=== PATIENT | female | born 1935 | race Caucasian/White ===

== ENCOUNTER 2019-05-22 10:44 | Observation (INO) | payer MEDICARE, BC ==
[~2019-05-22] VITALS: Ht 167.6 cm; Wt 89.5 kg
[2019-05-22] VITALS (8 sets, daily range): BP systolic 98–154; BP diastolic 49–69
[2019-05-22] MEDS ORDERED: LOSA50TA88 PO (14:00)
[2019-05-22] MEDS ORDERED: MOVA1TAB2 PO (14:00)
[2019-05-22] MEDS ORDERED: ATOR1TAB19 PO (14:00)
[2019-05-22] MEDS ORDERED: AMLO5TAB6 PO (14:00)
[2019-05-22] MEDS ORDERED: CARV12.5 PO (14:00)
[2019-05-22] MEDS ORDERED: ELIQ5TAB PO (14:00)
[2019-05-22] MEDS ORDERED: POTA10TA67 PO (14:00)
[2019-05-22] MEDS ORDERED: OXYC1TAB23 PO (14:00)
[2019-05-22] MEDS ORDERED: SYNT25TA PO (14:00)
[2019-05-22] MEDS ORDERED: ALLO100T PO (14:00)
[2019-05-22] MEDS ORDERED: FURO40TA2 PO (14:00)
[2019-05-22] MEDS ORDERED: IRON65TA2 PO (14:01)
[2019-05-22] MEDS ORDERED: PERCOCET 5MG/325MG TAB PO PRN ×2 (14:30→18:00)
--- NOTE | 2019-05-22 14:32 | HPEPDOC ---
General Date of Admission May 22, 2019 at 13:15 Date of Service: May 22, 2019 Chief Complaint The patient is a 83-year-old female admitted with a reason for visit of Pacemaker Battery Change. Source: Patient Exam Limitations: No limitations Timing/Duration: Other Severity: Other (not applicable) Associated Symptoms: Other ( a couple applicable) History of Present Illness 82 years old white female with past medical history of pacemaker secondary to complete heart block, chronic atrial fibrillation, hypertensive heart disease, heart failure, which is diastolic and chronic in nature was sent from Dr. Loera's office for change of pacemaker batteries. Patient offers no new complaints at the present time including chest pain, shortness of breath, nausea, vomiting, etc. Home Medications Scheduled Allopurinol (Allopurinol) 100 Mg Tablet, 100 MG PO QHS, (Reported) Amlodipine Besylate (Amlodipine Besylate) 5 Mg Tablet, 5 MG PO QHS, (Reported) Apixaban (Eliquis) 5 Mg Tablet, 5 MG PO BID, (Reported) Atorvastatin Calcium (Atorvastatin Calcium) 10 Mg Tablet, 10 MG PO QHS, (Reported) Carvedilol (Carvedilol) 12.5 Mg Tablet, 12.5 MG PO BID, (Reported) Ferrous Sulfate (Iron) 325 Mg Tablet, 325 MG PO DAILY, (Reported) TAKES AT NOON Furosemide (Furosemide) 40 Mg Tablet, 40 MG PO BID, (Reported) TAKES AT 0800/1600 Levothyroxine Sodium (Synthroid) 25 Mcg Tablet, 25 MCG PO QAM, (Reported) Losartan Potassium (Losartan Potassium) 50 Mg Tablet, 50 MG PO DAILY, (Reported) Naloxegol Oxalate (Movantik) 25 Mg Tablet, 25 MG PO DAILY, (Reported) Potassium Chloride (Potassium Chloride) 10 Meq Tab.er.prt, 10 MEQ PO DAILY, (Reported) Scheduled PRN Oxycodone HCl/Acetaminophen (Oxycodone-Acetaminophen 5-325) 1 Each Tablet, 1-2 TABS PO Q4H PRN for PAIN, (Reported) Allergies Coded Allergies: No Known Allergies (Verified , 11/23/03) Past Medical History Medical History PPM secondary to complete heart block, chronic atrial fibrillation, hypertensive heart disease and a chronic diastolic heart failure Surgical History 2 C-sections and 1, hernia repair Family History Significant Family History: No pertinent family hx Social History * Smoker: Denies Alcohol: Denies Drugs: denies A-FIB/CHADSVASC A-FIB History Current/History of A-Fib/PAF?: Yes Current PO Anticoag Therapy: Yes Review of Systems Constitutional: Denies: Chills, Fever, Malaise, Night Sweats, Weakness, Fatigue, Weight Loss, Lethargy, Other Eyes: Denies: Pain, Vision change, Conjunctivae inflammation, Eyelid inflammation, Redness, Other ENT: Denies: Head Aches, Ear Pain, Dysphagia, Sinus Congestion, Post Nasal Drip, Sore Throat, Epistaxis, Other Symptoms Skin: Denies: Rash, Lesions, Jaundice, Bruising, Itching, Dry, Breakdown, Nail Changes, Other Pulmonary: Denies: Dyspnea, Cough, Pleuritic Chest Pain, Other Symptoms Cardiovascular: Denies: Chest Pain, Palpitations, Orthopnea, Paroxysmal Noc. Dyspnea, Edema, Lt Headedness, Other Symptoms Gastrointestinal: Denies: Nausea, Vomiting, Abdominal Pain, Diarrhea, Constipation, Melena, Hematochezia, Other Symptoms Genitourinary: Denies: Dysuria, Frequency, Incontinence, Hematuria, Retention, Other Symptoms Hematologic: Denies: Bruising, Bleeding Excessively, Petecchia, Purpura, Enlarged Lymph Nodes, Other Hematologic Endocrine: Denies: Polydipsia, Polyphagia, Polyuria, Heat Intolerance, Cold Intolerance, Other Endocrine Sx Musculoskeletal: Denies: Neck Pain, Back Pain, Shoulder Pain, Arm Pain, Hand Pain, Leg Pain, Foot Pain, Joint Pain, Muscle Pain, Spasms, Other Symptoms Neurological: Denies: Weakness, Numbness, Incoordination, Change in speech, Confusion, Seizures, Other Symptoms Psych: Denies: Mood Normal, Anxiety, Depression, Memory Issues, Thoughts of Self Harm, Anger, Thoughts of Harming Other, Other Psych Physical Examination General Exam: Positive: Alert Eye Exam: Positive: PERRLA, Conjunctiva & lids normal ENT Exam: Positive: Atraumatic, Mucous membr. moist/pink Neck Exam: Positive: Supple Chest Exam: Positive: Clear to auscultation, Normal air movement Heart Exam: Positive: Rate Normal, Normal S1, Normal S2 Abdomen Exam: Positive: Normal bowel sounds Extremity Exam: Positive: Normal pulses Skin Exam: Positive: Nl turgor and temperature Neuro Exam: Positive: Normal Gait, Strength at 5/5 X4 ext, Cranial Nerves 3-12 NL Psych Exam: Positive: Mood NL, Oriented x 3 Vital Signs As per ICU nursing sheet Problems (1) Pacemaker at end of battery life Status: Acute Problem Text: 80 years old white female with past medical history of pacemaker placement secondary to complete heart block, chronic atrial fibrillation, chronic diastolic heart failure, hypertensive heart disease was sent in from Dr. Shrestha's office for replacement of battery is off her pacemaker. Patient is completely asymptomatic on presentation Admit patient to PCU under telemetry monitoring EKG CBC, CMP, INR hold eliquis Hold all antihypertensive meds secondary to low blood pressure Discussed with Dr. Shrestha on the phone Dr. Camarillo will be changing the bed raised of a pacemaker Will restart her home meds after the procedure Continue pain management (2) Chronic atrial fibrillation Status: Chronic Problem Text: EKG Telemetry monitoring Restart all home meds of the procedure (3) Complete heart block Status: Chronic Problem Text: Status post pacemaker placement (4) Chronic diastolic (congestive) heart failure Status: Chronic Problem Text: Stable on on diuretics Restart all home meds after the procedure Plan / VTE VTE Prophylaxis Ordered?: Yes SUSU ARORA MD May 22, 2019 14:32
[2019-05-22 15:11] LABS: HEMATOCRIT 37.1 % (36.0-47.0); HEMOGLOBIN 11.6 g/dl (12.0-15.5); MEAN CORPUSCULAR HEMOGLOBIN 32.6 pg (27.0-33.0); MEAN CORPUSCULAR HGB CONC 31.3 g/dl (32.0-36.5); MEAN CORPUSCULAR VOLUME 104.2 fl (80.0-96.0); PLATELET COUNT, AUTOMATED 187 10^3/uL (150-450); RED BLOOD COUNT 3.56 10^6/uL (4.00-5.40); WHITE BLOOD COUNT 5.9 10^3/uL (4.0-10.0)
[2019-05-22] MEDS ORDERED: ceFAZolin SOD 2 GM in IV 1 EA IV ONE (15:15)
[2019-05-22 15:17] LABS: INR 1.32; PROTHROMBIN TIME 16.1 SECONDS (11.8-14.0)
[2019-05-22] MEDS ORDERED: LIDOCAINE 1% SDV INJ 30 ML VIAL As Ordered ONE (15:22)
[2019-05-22 15:32] LABS: ALBUMIN 3.7 GM/DL (3.2-5.2); ALT/SGPT 10 U/L (12-78); BILIRUBIN,TOTAL 0.8 MG/DL (0.2-1.0); BLOOD UREA NITROGEN 20 MG/DL (7-18); CALCIUM LEVEL 9.7 MG/DL (8.8-10.2); CARBON DIOXIDE LEVEL 27 MEQ/L (21-32); CHLORIDE LEVEL 106 MEQ/L (98-107); CREATININE FOR GFR 0.62 MG/DL (0.55-1.30); GLOMERULAR FILTRATION RATE > 60.0 (>32); GLUCOSE, FASTING 93 MG/DL (70-100); MAGNESIUM LEVEL 2.5 MG/DL (1.8-2.4); POTASSIUM SERUM 4.3 MEQ/L (3.5-5.1); SODIUM LEVEL 140 MEQ/L (136-145); TOTAL PROTEIN 6.9 GM/DL (6.4-8.2)
[2019-05-22] MEDS ORDERED: propofoL 200 MG/20 ML VIAL As Ordered ONE ×2 (15:49→17:17)
[2019-05-22] MEDS ORDERED: fentaNYL 100 MCG/2 ML INJECTION (J3010) As Ordered ONE (15:49)
[2019-05-22] MEDS ORDERED: LIDOCAINE 2% INJ 100 MG/5 ML SDV (FOR ANES.) As Ordered ONE (15:49)
[2019-05-22] MEDS ORDERED: MIDAZOLAM INJ 2 MG/2 ML VIAL (J2250) As Ordered ONE (15:49)
[2019-05-22] MEDS ORDERED: ceFAZolin 2 GM/D5W 50 ML IV BAG (J0690 PER 500MG) As Ordered ONE (16:41)
[2019-05-22] MEDS ORDERED: NEOSPORIN TOP OINT 15GM As Ordered ONE (16:59)
[2019-05-22] MEDS ORDERED: ONDANSETRON 4MG/2ML VIAL (J2405) As Ordered ONE (17:09)
[2019-05-22] MEDS ORDERED: KETOROLAC 60 MG/2 ML VIAL (J1885) As Ordered ONE (17:10)
[2019-05-22] MEDS ORDERED: KETOROLAC 30 MG/ML VIAL (J1885) IV PRN (17:11)
[2019-05-22] MEDS ORDERED: LR 1,000 ML IV SCH (18:00)
[2019-05-22] MEDS: ASCORBIC ACID 250 MG TAB PO SCH (20:51)
[2019-05-22] MEDS: PERCOCET 5MG/325MG TAB PO PRN (20:52)
[2019-05-22] MEDS ORDERED: allopurinoL 100 MG TAB PO SCH (21:00)
[2019-05-22] MEDS ORDERED: ATORVASTATIN 10 MG TAB PO SCH (21:00)
[2019-05-22] MEDS ORDERED: amLODIPine 5 MG TAB PO SCH (21:00)
--- NOTE | 2019-05-22 21:15 | RO ---
DATE OF PROCEDURE: 05/22/2019 INDICATION: Pacemaker battery depletion. PREPROCEDURE DIAGNOSIS: Pacemaker battery depletion. POSTPROCEDURE DIAGNOSIS: Pacemaker battery depletion. PROCEDURE PERFORMED: Explantation of old Medtronic single-chamber pacemaker and implantation of a new Medtronic single-chamber pacemaker pulse generator, insertion of a TYRX antimicrobial envelope. SURGEON: Nhan Camairllo MD ASSOCIATE JAVA DEVELOPER: None. ANESTHESIA: Lidocaine 1% local and monitored anesthetic care. SPECIMENS: Old Medtronic single-chamber pacemaker pulse generator. COMPLICATIONS: None. ESTIMATED BLOOD LOSS: 20 mL. DESCRIPTION OF PROCEDURE: The patient was prepped and draped over the left pectoral region. 3M Ioban film was applied. Incision was made using a SFOXtronic PEAK PlasmaBlade through the existing pacemaker incision scar. The PEAK PlasmaBlade was used to get down to and through the capsule overlying the pacemaker pulse generator. The pacemaker pulse generator was removed from the pocket after cutting the tie-down suture holding the pacemaker pulse generator. The existing ventricular pacemaker lead was removed from the existing pacemaker pulse generator after loosening the set screw, and it was immediately placed into the header of the new pacemaker pulse generator and secured by tightening the set screw on the new pacemaker pulse generator. Next, I took a TYRX antimicrobial envelope and cut into six pieces, which were placed into the floor of the existing pacemaker pocket. The new pacemaker pulse generator was then placed into the existing pacemaker pocket. The deep layer was closed using individual sutures consisting of #2-0 Vicryl. A few additional #3-0 Vicryl sutures were used to help approximate the more superficial layer. Skin was closed using ada. Bactroban ointment was then placed over the incision line followed by Telfa, followed by a Bioclusive dressing. The patient tolerated the procedure well without any immediate complications. The existing pacemaker pulse generator that was removed was a Medtronic Adapta SR with product number [id number] and serial number [id number], which was implanted 08/30/2014. The new pacemaker pulse generator implanted was a Medtronic model W1SR01 with serial number [id number]. The model name was Licha XT SR MRI. The existing pacemaker lead for the right ventricle was a Medtronic model 5076-58 with serial number [id number], originally implanted 09/29/2002. Device-based testing through the new pacemaker pulse generator for the right ventricle lead showed a lead impedance of 323 ohms with capture threshold of 1.75 volts at 0.8 milliseconds. No R waves (patient completely pacemaker dependent).
[2019-05-23] VITALS: BP 125/86
[2019-05-23 04:00] VITALS: BP 127/60
[2019-05-23] MEDS: PERCOCET 5MG/325MG TAB PO PRN ×3 (04:22→12:22)
[2019-05-23] MEDS ORDERED: LEVOTHYROXINE 25MCG TABLET (0.025MG) PO SCH (06:00)
--- NOTE | 2019-05-23 06:54 | ECGEPIP ---
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
--- NOTE | 2019-05-23 06:58 | ECGEPIP ---
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
[2019-05-23 07:52] VITALS: BP 154/63
[2019-05-23] MEDS: ASCORBIC ACID 250 MG TAB PO SCH (08:38)
[2019-05-23] MEDS ORDERED: APIXABAN 5 MG TAB (ELIQUIS) PO SCH (09:00)
[2019-05-23] MEDS ORDERED: POTASSIUM CHLORIDE 10 MEQ SR TABLET PO SCH (09:00)
[2019-05-23] MEDS ORDERED: LOSARTAN 50 MG TAB PO SCH (09:00)
[2019-05-23] MEDS ORDERED: CARVedilol 12.5 MG TAB PO SCH (09:00)
[2019-05-23] MEDS ORDERED: FUROSEMIDE 40 MG TAB PO SCH (09:00)
[2019-05-23] MEDS ORDERED: FERROUS SULFATE 325MG TAB PO SCH (09:00)
--- NOTE | 2019-05-23 10:09 | IPNPDOC ---
Subjective Date Seen The patient was seen on 05/23/19. Subjective Chief Complaint/HPI Patient comfortable and in no distress. Offers no new complaints. Pacemaker battery were changed yesterday General: Denies: ROS Unobtainable, Chills, Night Sweats, Fatigue, Malaise, Normal Appetite, Other Symptoms Constitutional: Denies: Chills, Fever, Malaise, Night Sweats, Weakness, Fatigue, Weight Loss, Lethargy, Other Pulmonary: Denies: Dyspnea, Cough, Pleuritic Chest Pain, Other Symptoms Cardiovascular: Denies: Chest Pain, Palpitations, Orthopnea, Paroxysmal Noc. Dyspnea, Edema, Lt Headedness, Other Symptoms Gastrointestinal: Denies: Nausea, Vomiting, Abdominal Pain, Diarrhea, Constipation, Melena, Hematochezia, Other Symptoms Musculoskeletal: Denies: Neck Pain, Back Pain, Shoulder Pain, Arm Pain, Hand Pain, Leg Pain, Foot Pain, Joint Pain, Muscle Pain, Spasms, Other Symptoms Neurological: Denies: Weakness, Numbness, Incoordination, Change in speech, Confusion, Seizures, Other Symptoms Objective Physical Examination Chest Exam: Positive: Clear to auscultation, Normal air movement Heart Exam: Positive: Rate Normal, Normal S1, Normal S2 Abdomen Exam: Positive: Normal bowel sounds Extremity Exam: Positive: Normal pulses Skin Exam: Positive: Nl turgor and temperature Neuro Exam: Positive: Normal Gait, Strength at 5/5 X4 ext, Cranial Nerves 3-12 NL Assessment /Plan Problems (1) Pacemaker at end of battery life Status: Acute Problem Text: Pacemaker batteries were changed yesterday by Dr. pérez Pacemaker rhythm noted on telemetry Patient will be discharged home once cleared from cardiology Continue all home meds (2) Complete heart block Status: Chronic Problem Text: Status post pacemaker placement (3) Chronic diastolic (congestive) heart failure Status: Chronic Problem Text: Stable and under control. Continue home meds (4) Chronic atrial fibrillation Status: Chronic Problem Text: Under control. Continue home meds Plan/VTE VTE Prophylaxis Ordered?: Yes VS, I&O, 24H, Fishbone Vital Signs/I&O Vital Signs Date Time Temp Pulse Resp B/P (MAP) Pulse Ox O2 Delivery O2 Flow Rate FiO2 05/23/19 09:08 16 05/23/19 08:00 2.0 05/23/19 07:52 97.2 59 154/63 (93) 98 Nasal Cannula I&O- Last 24 Hours up to 6 AM 05/23/19 06:00 Intake Total 1850 ml Output Total 395 ml Balance 1455 ml Laboratory Data 24H LABS Laboratory Tests 2 05/22/19 14:54: Nucleated Red Blood Cells % (auto) 0.0, Prothrombin Time 16.1H, Prothromb Time International Ratio 1.32, Anion Gap 7L, Glomerular Filtration Rate > 60.0, Ca lcium Level 9.7, Magnesium Level 2.5H, Total Bilirubin 0.8, Aspartate Amino Transf (AST/SGOT) 12, Alanine Aminotransferase (ALT/SGPT) 10L, Alkaline Phosphatase 87, Total Protein 6.9, Albumin 3.7, Albumin/Globulin Ratio 1.16 CBC/BMP Laboratory Tests 05/22/19 14:54 SUSU ARORA MD May 23, 2019 10:09
[2019-05-23 10:54] VITALS: BP 119/61
[2019-05-23 10:55] VITALS: BP 119/61
[2019-05-23 12:19] VITALS: BP 128/80
--- NOTE | 2019-05-23 16:03 | DS.PDOC ---
Discharge Summary General Date of Admission May 22, 2019 at 13:15 Date of Discharge 05/23/19 Discharge Summary PROCEDURES PERFORMED DURING STAY: None. ADMITTING DIAGNOSES: 1. Pacemaker battery change. DISCHARGE DIAGNOSES: 1. Pacemaker battery change., History of Complete heart block, chronic atrial fibrillation, hypertensive heart disease, chronic diastolic heart failure by history COMPLICATIONS/CHIEF COMPLAINT: Pacemaker Battery Change. HISTORY OF PRESENT ILLNESS: 82 years old white female with past medical history of pacemaker secondary to complete heart block, chronic atrial fibrillation, hypertensive heart disease, heart failure, which is diastolic and chronic in nature was sent from Dr. Loera's office for change of pacemaker batteries. Patient offers no new complaints at the present time including chest pain, shortness of breath, nausea, vomiting, etc.. HOSPITAL COURSE: Patient was admitted for the change of her pacemaker battery. Patient was admitted initially to ICU. Later changed to PCU. Patient was continued monitoring on telemetry. Patient was taken to or by Dr. miranda to call and had a batteries of her pacemaker checked. Patient was continued monitoring overnight without any problems and complaints. Pacemaker functioning very well and cleared from cardiology for discharge home and follow with Dr. Camarillo in one week. DISCHARGE MEDICATIONS: Please see below. ALLERGIES: Please see below. PHYSICAL EXAMINATION ON DISCHARGE: VITAL SIGNS: Please see below. GENERAL: Within normal limits HEENT: PERRLA, exogenous regular muscles intact NECK: Supple. Negative JVD, negative lymphadenopathy CARDIOVASCULAR EXAMINATION: S1, S2, regular RESPIRATORY EXAMINATION: Clear to A&P ABDOMINAL EXAMINATION: , Soft, nontender. Pulses present EXTREMITIES: No clubbing, cyanosis, edema SKIN: Normal NEUROLOGICAL EXAMINATION: . No focal motor sensory deficit PSYCHIATRIC EXAMINATION: Normal LABORATORY DATA: Please see below. IMAGING: None PROGNOSIS: Good ACTIVITY: As tolerated. DIET: As tolerated DISCHARGE PLAN: As per transplant DISPOSITION: 01 Home, Self-Care. DISCHARGE INSTRUCTIONS: 1. As per discharge instructions. ITEMS TO FOLLOWUP ON ON OUTPATIENT: 1. Follow-up with in one week. DISCHARGE CONDITION: Stable. TIME SPENT ON DISCHARGE: 32 minutes. Vital Signs/I&Os Vital Signs Date Time Temp Pulse Resp B/P (MAP) Pulse Ox O2 Delivery O2 Flow Rate FiO2 05/23/19 12:52 18 05/23/19 12:19 97.9 64 128/80 (96) 94 Room Air 05/23/19 08:00 2.0 I&O- Last 24 Hours up to 6 AM 05/23/19 06:00 Intake Total 1850 ml Output Total 395 ml Balance 1455 ml Discharge Medications Scheduled Allopurinol (Allopurinol) 100 Mg Tablet, 100 MG PO QHS, (Reported) Amlodipine Besylate (Amlodipine Besylate) 5 Mg Tablet, 5 MG PO QHS, (Reported) Apixaban (Eliquis) 5 Mg Tablet, 5 MG PO BID, (Reported) Atorvastatin Calcium (Atorvastatin Calcium) 10 Mg Tablet, 10 MG PO QHS, (Reported) Carvedilol (Carvedilol) 12.5 Mg Tablet, 12.5 MG PO BID, (Reported) Ferrous Sulfate (Iron) 325 Mg Tablet, 325 MG PO DAILY, (Reported) TAKES AT NOON Furosemide (Furosemide) 40 Mg Tablet, 40 MG PO BID, (Reported) TAKES AT 0800/1600 Levothyroxine Sodium (Synthroid) 25 Mcg Tablet, 25 MCG PO QAM, (Reported) Losartan Potassium (Losartan Potassium) 50 Mg Tablet, 50 MG PO DAILY, (Reported) Naloxegol Oxalate (Movantik) 25 Mg Tablet, 25 MG PO DAILY, (Reported) Potassium Chloride (Potassium Chloride) 10 Meq Tab.er.prt, 10 MEQ PO DAILY, (Reported) Scheduled PRN Oxycodone HCl/Acetaminophen (Oxycodone-Acetaminophen 5-325) 1 Each Tablet, 1-2 TABS PO Q4H PRN for PAIN, (Reported) Allergies Coded Allergies: No Known Allergies (Verified , 11/23/03) SUSU ARORA MD May 23, 2019 16:03
== END 2019-05-23 15:12 | disposition home or self-care (01) ==
LOC: M ICU 13:15 → INTOOBSV 13:15
PROVIDERS: ADMIT Internal Medicine; ATTEND Internal Medicine
DX: Z45.010 Encounter for checking and testing of cardiac pacemaker pulse generator [battery] (principal); I44.2 Atrioventricular block, complete; I48.20 Chronic atrial fibrillation, unspecified; I11.0 Hypertensive heart disease with heart failure; I50.32 Chronic diastolic (congestive) heart failure; E03.9 Hypothyroidism, unspecified; Z79.01 Long term (current) use of anticoagulants; Z79.899 Other long term (current) drug therapy; E78.5 Hyperlipidemia, unspecified
CPT/HCPCS: 33227; 36415; 80053; 83735; 85027; 85610; 93005; C1786; G0378; J0690; J1885; J2250; J2405; J3010